=== PATIENT | male | born 1970 | race Caucasian/White ===

== ENCOUNTER 2020-06-06 17:37 | Emergency (ER) | payer SELFPAY ==
--- NOTE | 2020-06-06 18:47 | RAD ---
LEFT HAND: 06/06/20 Three views. HISTORY: Injury. Carpals unremarkable. 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 The other MCP joints are unremark able. Minimal DJD a the IP joint of the thumb. The other IP joints are unremarkable. No fracture or acute abnormality. 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 POS: AGW
== END 2020-06-06 19:05 | disposition home or self-care (01) ==
LOC: MADERS 17:37
DX: S63.613A Unspecified sprain of left middle finger, initial encounter (principal); I10 Essential (primary) hypertension; Z86.73 Personal history of transient ischemic attack (TIA), and cerebral infarction without residual deficits; Z87.891 Personal history of nicotine dependence; Z79.899 Other long term (current) drug therapy; X58.XXXA Exposure to other specified factors, initial encounter; Y92.69 Other specified industrial and construction area as the place of occurrence of the external cause